=== PATIENT | male | born 1960 | race Caucasian/White ===

== ENCOUNTER 2017-10-16 19:16 | Emergency (ER) | payer OTHER ==
--- OUTSIDE RECORDS SUMMARY | 2017-10-16 19:41 | XMS REPORT ---
:1960 External Reference #:[id number] Author Organization [facility] Address [address] [address] Phone [phone] Care Team Providers Name Role Phone Mayito Galarza DO Care Team Information Manager Business Management Unavailable Payers Type Date Identification Numbers Payment Provider Subscriber Commercial Effective: Policy Number: Lifetime Benefit Gita Patton 2014 [id number] Solution Group Number: [id number] [address] PayID: [place] [address] Medigap Part B Expires: 2014 PayID: [facility] Lifetime Benefit Christian Patton JR Solution [address] [place] [address] Problems Date Description Provider Status Onset: 10/20/2008 Mixed hyperlipidemia Jeovany Sandhu DO Active Onset: 03/21/2008 Psoriasis Jeovany Sandhu DO Active Onset: 03/21/2008 Varicose veins of lower extremity with Jeovany Sandhu DO Active ulcer AND inflammation Onset: 07/19/2007 Allergic rhinitis due to pollen Jeovany Sandhu DO Active Onset: 07/19/2007 Benign essential hypertension Jeovany Sandhu DO Active Onset: 05/23/2016 Family history of malignant neoplasm of Jeovany Sandhu DO Active gastrointestinal tract Onset: 09/08/2014 Gastroesophageal reflux disease Jeovany Sandhu DO Active Social History Type Date Description Comments 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 Marital Status Cigarette Use Never Smoked Cigarettes ETOH Use Rarely consumes alcohol Smoking Patient has never smoked Daily Caffeine Consumes on average 1 cup of coffee per day General Hx Text Allergies, Adverse Reactions, Alerts Date Description Reaction Status Severity Comments 08/18/2014 Mirapex active Medications Medication Date Status Form Strength Qnty SIG Indications Ordering Provider Toprol XL 09/21/19 Active Tablets ER 50mg 90tabs 1 by I10 Geovanni, 17 24HR mouth Mayito, DO every d R00.0 Diovan HCT 08/25/2016 Active Tablets 320-25mg 90tabs 1 by I10 Geovanni, mouth Mayito, DO every day Potassium 11/26/2012 Active Tablets ER 20Meq 90tabs 1 by E87.6 Geovanni, Chloride ER mouth Mayito, DO every day I10 Lansoprazole 12/24/[address] 30mg 90caps 1 by K21.9 Geovanni mouth Mayito, every DO day Aspirin Low Dose 10/20/2008 Active Chewtabs 81mg 1 po qd Phoebe, Jeovany, DO Simvastatin 07/21/2008 Active Tablets 20mg 90tabs 1 by E78.2 Geovanni, mouth Mayito, every DO day Tramadol HCL Active Tablets 50mg 60tabs 1-by M79.606 Geovanni mouth Mayito, twice a DO day as needed for pain Ciprofloxacin 05/22/2017 - Hx Tablets 500mg 42tabs 1 by R97.20 Phoebe, HCL 09/20/2017 mouth Jeovany, twice a DO day Cephalexin 04/17/2017 - Hx Capsules 500mg 30caps 1 by I87.313 Phoebe, 05/22/2017 mouth Jeovany, three DO times a day Toprol XL 09/08/2016 - Hx Tablets ER 25mg 14tabs 1 by I10 Phoebe, 09/20/2016 24HR mouth Jeovany, every DO day R00.0 Diovan HCT 09/08/2014 - Hx Tablets 160-25mg 90tabs 1 by mouth Phoebe, 08/25/2016 every day Jeovany, DO Azithromycin 08/18/2014 - Hx Tablets 250mg 6tabs 2 by mouth 465 Digiovanna, 08/23/2014 on day 1 .9 Bee, and 1 by DELIVERY ASSOCIATE mouth day 2-5 Clobetasol 03/07/2012 - Hx Cream 0.05% 60gm apply to Phoebe, Propionate 09/08/2014 area bid DO Jeovany Diovan HCT 12/21/2009 - Hx Tablets 160-25mg 90Tabs 1 by mouth Phoebe, 09/08/2014 every day DO Jeovany Montelukast 10/26/2009 - Hx Tablets 10mg 30tabs 1 by mouth Phoebe, Sodium 09/08/2014 every d DO Jeovany Acetaminophen - Hx Tablets 500mg 2 PO Q4H Feldman, Extra Strength 09/08/2014 prn MD Chidi Pentoxifylline ER - Hx Tablets ER 400mg 90tabs 1 by mouth Norris, 09/08/2014 daily with seb Bellamy. Horse Clements - Hx Capsules 300mg venostat 1 Unknown 05/11/2015 by mouth twice a day Immunizations CPT Code Status Date Vaccine Reaction Lot # [id number] Given 05/03/2016 Fluvirin Immun[facility] [place]. Vital Signs Date Vital Result Comment 09/20/2017 Weight 204.00 lb Heart Rate 84 /min BP Systolic 144 mmHg BP Diastolic 94 mmHg Respiratory Rate 17 /min Height 69.25 inches 5'9.25" (08/25/16) BMI (Body Mass Index) 29.9 kg/m2 05/22/2017 Weight 207.00 lb Heart Rate 80 /min 80 Reg BP Systolic 128 mmHg BP Diastolic 86 mmHg BP Systolic Recheck 130 mmHg BP Diastolic Recheck 82 mmHg Respiratory Rate 16 /min Height 69.25 inches 5'9.25" (08/25/16) BMI (Body Mass Index) 30.3 kg/m2 04/17/2017 Body Temperature 98.1 F tympanic Weight 204.00 lb Heart Rate 76 /min BP Systolic 134 mmHg BP Diastolic 84 mmHg Respiratory Rate 16 /min Height 69.25 inches 5'9.25" (08/25/16) BMI (Body Mass Index) 29.9 kg/m2 01/16/2017 Weight 200.50 lb Heart Rate 76 /min 76 Reg BP Systolic 110 mmHg BP Diastolic 74 mmHg BP Systolic Recheck 114 mmHg BP Diastolic Recheck 74 mmHg Respiratory Rate 16 /min Height 69.25 inches 5'9.25" (08/25/16) BMI (Body Mass Index) 29.4 kg/m2 10/14/2016 Weight 206.00 lb Heart Rate 78 /min 72 Reg BP Systolic 136 mmHg BP Diastolic 86 mmHg BP Systolic Recheck 130 mmHg BP Diastolic Recheck 80 mmHg Respiratory Rate 18 /min Height 69.25 inches 5'9.25" (08/25/16) BMI (Body Mass Index) 30.2 kg/m2 09/20/2016 Weight 201.00 lb Heart Rate 72 /min 80 Reg BP Systolic 130 mmHg BP Diastolic 80 mmHg BP Systolic Recheck 134 mmHg BP Diastolic Recheck 84 mmHg Respiratory Rate 18 /min Height 69.25 inches 5'9.25" (08/25/16) BMI (Body Mass Index) 29.5 kg/m2 08/25/2016 Weight 231.00 lb Heart Rate 90 /min 100 Reg BP Systolic 140 mmHg BP Diastolic 100 mmHg BP Systolic Recheck 140 mmHg L BP Diastolic Recheck 96 mmHg L BP Systolic Lying Down 140 mmHg R BP Diastolic Lying Down 94 mmHg R Respiratory Rate 24 /min Height 69.25 inches 5'9.25" (08/25/16) BMI (Body Mass Index) 33.9 kg/m2 05/23/2016 Weight 199.06 lb Heart Rate 78 /min 72 Reg BP Systolic 124 mmHg BP Diastolic 70 mmHg BP Systolic Recheck 124 mmHg BP Diastolic Recheck 72 mmHg Respiratory Rate 18 /min Height 70 inches 5'10" BMI (Body Mass Index) 28.6 kg/m2 01/21/2016 Weight 201.00 lb Heart Rate 78 /min 72 Reg BP Systolic 132 mmHg BP Diastolic 90 mmHg BP Systolic Recheck 130 mmHg BP Diastolic Recheck 80 mmHg Respiratory Rate 18 /min Height 69.75 inches 5'9.75" BMI (Body Mass Index) 29.0 kg/m2 09/14/2015 Weight 201.00 lb Heart Rate 78 /min 80 Reg BP Systolic 120 mmHg BP Diastolic 82 mmHg BP Systolic Recheck 120 mmHg BP Diastolic Recheck 80 mmHg Respiratory Rate 18 /min Height 69.75 inches 5'9.75" BMI (Body Mass Index) 29.0 kg/m2 05/11/2015 Weight 196.00 lb Heart Rate 66 /min 68 Reg BP Systolic 132 mmHg BP Diastolic 80 mmHg BP Systolic Recheck 120 mmHg BP Diastolic Recheck 80 mmHg Respiratory Rate 18 /min Height 66.5 inches 5'6.50" BMI (Body Mass Index) 31.2 kg/m2 02/16/2015 Weight 197.00 lb Heart Rate 60 /min BP Systolic 126 mmHg BP Diastolic 88 mmHg Respiratory Rate 18 /min Height 66.5 inches 5'6.50" BMI (Body Mass Index) 31.3 kg/m2 01/08/2015 Weight 199.00 lb Heart Rate 78 /min 72 Reg BP Systolic 130 mmHg BP Diastolic 80 mmHg BP Systolic Recheck 130 mmHg BP Diastolic Recheck 76 mmHg Respiratory Rate 18 /min 09/08/2014 Weight 194.00 lb Heart Rate 66 /min 72 Reg BP Systolic 110 mmHg BP Diastolic 70 mmHg BP Systolic Recheck 120 mmHg BP Diastolic Recheck 70 mmHg Respiratory Rate 24 /min 08/18/2014 Body Temperature 98.8 F Weight 179.25 lb Heart Rate 88 /min BP Systolic 152 mmHg BP Diastolic 90 mmHg Respiratory Rate 18 /min Height 66.45 inches 5'6.45" 2/15 O2 % BldC Oximetry 96 % Ra BMI (Body Mass Index) 28.5 kg/m2 05/05/2014 BP Systolic 110 mmHg BP Diastolic 78 mmHg 05/05/2014 Weight 178.00 lb Heart Rate 78 /min 72 Reg BP Systolic 110 mmHg BP Diastolic 70 mmHg Respiratory Rate 18 /min Height 66.5 inches 5'6.50" 12/27/2013 BP Systolic 118 mmHg BP Diastolic 72 mmHg 12/27/2013 Weight 178.00 lb Heart Rate 78 /min 72 Reg BP Systolic 110 mmHg BP Diastolic 70 mmHg Respiratory Rate 18 /min Height 66.5 inches 5'6.50" 08/29/2013 BP Systolic 120 mmHg BP Diastolic 70 mmHg 08/29/2013 Weight 181.00 lb Heart Rate 78 /min 80 Reg BP Systolic 120 mmHg BP Diastolic 70 mmHg Respiratory Rate 18 /min O2 % BldC Oximetry 97 % Ra Results Test Date Test Result H/L Range Note Laboratory test finding 07/03/2017 Glucose 101 mg/dL 70-105 1 Hemoglobin A1c 07/03/2017 Hemoglobin A1c 5.4 % 4.1-5.9 1 Estimated Average Glucose Calc 108 mg/dL 71-140 1 PSA Total And Free -RL 07/03/2017 PSA Total 5.1 ng/mL High (0.0-4.0) 1 PSA Free 0.4 ng/mL 1 PSA % Free 8 % 1, 2 Hemoglobin A1c 05/22/2017 Hemoglobin A1c 5.4 % 4.1-5.9 3 Estimated Average Glucose Calc 108 71-140 3 CBC With Auto Diff 05/15/2017 WBC 6.1 K/uL 4.1-11.0 4 RBC 4.67 M/uL 4.60-6.10 4 Hemoglobin 15.6 gm/dL 13.5-18.0 4 Hematocrit 43.3 % 41.0-53.0 4 MCV 92.8 fL 80.0-97.0 4 MCH 33.4 pg High 27.0-32.0 4 MCHC 36.0 g/dL 32.0-36.0 4 RDW 13.1 % 11.5-14.5 4 PLT Count 273 K/ul 140-400 4 MPV 7.8 FL 7.1-10.7 4 Neutrophil 59.8 % 35.0-75.0 4 Lymphocyte 27.4 % 16.0-52.0 4 Monocyte 8.8 % 2.0-10.0 4 Eosinophil 2.8 % 0.0-5.0 4 Basophil 1.2 % 0.0-4.0 4 Abs Neutrophils 3.7 K/uL 2.1-8.0 4 Abs Lymphocytes 1.7 K/uL 0.8-5.5 4 Abs Monocytes 0.5 K/uL 0.1-1.0 4 Abs Eosinophils 0.2 K/uL 0.0-0.5 4 Abs Basophils 0.1 K/uL 0.0-0.3 4 Basic (BMP) 05/15/2017 Sodium 135 mmol/L 135-146 4, 5 Potassium 3.7 mmol/L 3.5-5.2 4 Chloride# 97 mmol/L 97-110 4, 6 Carbon Dioxide 29 mmol/L 24-34 4 Glucose 166 mg/dL High 70-105 4 Creatinine 0.8 mg/dL 0.5-1.4 4 Calcium 9.6 mg/dL 8.5-10.2 4 Non Shabana Egfr >60 >60 4, 7 Shabana Egfr >60 >60 4, 8 Anion Gap 9 mmol/L 7-16 4, 9 BUN 10 mg/dL 6-26 4 Lipid Treatment 05/15/2017 Cholesterol 131 mg/dL 50-199 4 Triglycerides 333 mg/dL High 30-150 4 HDL 29 mg/dL Low 40-71 4, 10 Chol/ HDL Ratio 4.5 ratio 4.0-6.7 4 VLDL 67 mg/dL High 2-29 4 LDL (Calc) 35 mg/dL 20-99 4, 11 Alt 19 U/L 3-42 4 Ast 18 U/L 8-42 4 Laboratory test finding 05/15/2017 PSA 4.140 ng/mL High 0.000-4.000 4, 12 CBC With Auto Diff 09/14/2016 WBC 8.5 K/uL 4.1-11.0 4 RBC 5.04 M/uL 4.60-6.10 4 Hemoglobin 16.6 gm/dL 13.5-18.0 4 Hematocrit 47.5 % 41.0-53.0 4 MCV 94.3 fL 80.0-97.0 4 MCH 32.9 pg High 27.0-32.0 4 MCHC 34.9 g/dL 32.0-36.0 4 RDW 13.3 % 11.5-14.5 4 PLT Count 289 K/ul 140-400 4 Neutrophil 62.2 % 35.0-75.0 4 Lymphocyte 24.4 % 16.0-52.0 4 Monocyte 7.9 % 2.0-10.0 4 Eosinophil 4.0 % 0.0-5.0 4 Basophil 1.5 % 0.0-4.0 4 Abs Neutrophils 5.3 K/uL 2.1-8.0 4 Abs Lymphocytes 2.1 K/uL 0.8-5.5 4 Abs Monocytes 0.7 K/uL 0.1-1.0 4 Abs Eosinophils 0.3 K/uL 0.0-0.5 4 Abs Basophils 0.1 K/uL 0.0-0.3 4 Basic (BMP) 09/14/2016 Sodium 139 mmol/L 134-142 4 Potassium 3.4 mmol/L Low 3.5-5.2 4 Chloride 99 mmol/L 97-109 4 Carbon Dioxide 34 mmol/L 24-34 4 Glucose 123 mg/dL High 70-105 4 BUN 15 mg/dL 6-26 4 Creatinine 0.8 mg/dL 0.5-1.4 4 Calcium 10.2 mg/dL 8.5-10.2 4 Anion Gap 9 mmol/L 6-14 4 Non Shabana Egfr >60 >60 4, 13 Shabana Egfr >60 >60 4, 14 Lipid Treatment 09/14/2016 Cholesterol 143 mg/dL 50-199 4 Triglycerides 205 mg/dL High 30-150 4 HDL 38 mg/dL Low 40-71 4, 15 Chol/ HDL Ratio 3.7 ratio Low 4.0-6.7 4 VLDL 41 mg/dL High 2-29 4 LDL (Calc) 64 mg/dL 20-99 4, 16 Alt 27 U/L 3-42 4 Ast 19 U/L 8-42 4 Lipid 08/25/2016 Cholesterol 141 mg/dL 50-199 17 Triglycerides 152 mg/dL High 30-150 17 HDL 39 mg/dL Low 40-71 17, 18 Chol/ HDL Ratio 3.6 ratio Low 4.0-6.7 17 VLDL 30 mg/dL High 2-29 17 LDL (Calc) 72 mg/dL 20-99 17, 19 Metanephrines Plasma 08/25/2016 Normetanephrine 0.46 nmol/L 20 Metanephrine 0.25 nmol/L 21 Interpretation See Note 22 Ua RFX Micro & Culture II 07/30/2016 Urine Color YELLOW Yellow 23 Urine Clarity CLEAR Clear 23 Urine Glucose - Dipstick NEGATIVE mg/dL Negative 23 Urine Bilirubin - Dipstick NEGATIVE Negative 23 Urine Ketone TRACE mg/dL High Negative 23 Urine Specific [place] 1.020 1.010-1.030 23 Urine Blood NEGATIVE Negative 23 Urine PH 6.5 6.5-7.5 23 Urine Protein - Dipstick NEGATIVE mg/dL Negative 23 Urine Urobilinogen - Dipstick 0.2 E.U./dL 0.2-1.0 23 Urine Nitrite - Dipstick NEGATIVE Negative 23 Urine Leuk Esterase NEGATIVE Negative 23 Source: URINE, CLEAN CAT <SEE 23, 24 NOTE> Laboratory test finding 07/30/2016 Glucose,Bedside 106 mg/dL 70-110 23 CBS W/Automated Diff 07/30/2016 White Blood Count 5.9 K/uL 3.4-10.5 23 Red Blood Count 5.02 M/uL 4.20-5.80 23 Hemoglobin 16.4 gm/dL 12.8-17.0 23 Hematocrit 45.6 % 38.0-48.0 23 Mean Cell Volume 90.8 fl 80.0-96.0 23 Mean Corpuscular HGB 32.7 pg 27.0-33.0 23 Mean Corpuscular HGB Conc 36.0 g/dL 31.7-36.0 23 Platelet Count 227 K/uL 150-400 23 Red Cell Distri Width SD 42.6 fl 36-51 23 Red Cell Distri Width %CV 13.1 % 11.6-15.8 23 Mean Platelet Volume 9.1 fL 6.6-10.6 23 Neut% 61.9 % 33.0-73.0 23 Lymph % 22.5 % 20.0-42.0 23 Lajas % 12.4 % High 0.0-10.0 23 Eo% 2.7 % 0.0-5.0 23 Bas% 0.5 % 0.1-1.0 23 Neut# 3.65 K/uL 1.8-7.0 23 Lymph # 1.33 K/uL 1.0-4.0 23 Lajas # 0.73 K/uL 0.0-0.8 23 Eos # 0.16 K/uL 0.0-0.5 23 Baso # 0.03 K/uL Low 0.1-0.2 23 Protime 07/30/2016 Protime 13.9 seconds 12.0-14.4 23 Inr 1.1 0.9-1.1 23, 25 Laboratory test finding 07/30/2016 Act Partial 27.4 seconds 23.4-35.0 23 , 26 Thrombo Time Comprehensive Metabolic 07/30/2016 Glucose 118 mg/dL High 74-106 23 Panel BUN 13 mg/dL 7-18 23 Creatinine 0.8 mg/dL 0.6-1.3 23 Glom Filtration Rate, Estimate >60 mL/min >60 23 If >60 mL/min >60 23, 27 BUN/Creat 16.2 ratio 23 Sodium 137 mmol/L 136-145 23 Potassium 3.2 mmol/L Low 3.5-5.1 23 Chloride 102 mmol/L 98-107 23 Carbon Dioxide 27 mmol/L 21-32 23 Anion Gap 8 mEq/L 8-16 23 Calcium 9.2 mg/dL 8.5-10.1 23 Total Protein 7.9 g/dL 6.4-8.2 23 Albumin 4.3 g/dL 3.4-5.0 23 Globulin 3.6 g/dL 1.9-4.3 23 Alb/Glob 1.2 ratio 23 Bilirubin,Total 0.6 mg/dL 0.2-1.0 23 Sgot/Ast 19 U/L 15-37 23 SGPT/Alt 31 U/L 12-78 23 Alkaline Phosphatase 63 U/L 45-117 23 Laboratory test finding 07/30/2016 CK 69 U/L 39-308 23 Troponin-I < 0.015 ng/mL 23, 28 Laboratory test finding 07/30/2016 Ethyl Alcohol < 3.0 mg/dL 23 Lipid Treatment 01/13/2016 Cholesterol 141 mg/dL 50-199 29 Triglycerides 210 mg/dL High 30-150 29 HDL 33 mg/dL Low 40-71 29, 30 Chol/ HDL Ratio 4.3 ratio 4.0-6.7 29 VLDL 42 mg/dL High 2-29 29 LDL (Calc) 66 mg/dL 20-99 29, 31 Alt 20 U/L 3-42 29 Ast 17 U/L 8-42 29 Laboratory test finding 01/13/2016 Magnesium 2.0 mg/dL 1.5-2.7 29 PSA 2.930 ng/mL 0.000-4.000 29, 32 Basic (BMP) 01/13/2016 Sodium 135 mmol/L 134-142 29 Potassium 3.7 mmol/L 3.5-5.2 29 Chloride 100 mmol/L 97-109 29 Carbon Dioxide 27 mmol/L 24-34 29 Glucose 94 mg/dL 70-105 29 BUN 15 mg/dL 6-26 29 Creatinine 0.9 mg/dL 0.5-1.4 29 Calcium 10.1 mg/dL 8.5-10.2 29 Anion Gap 12 mmol/L 6-14 29 Non Shabana Egfr >60 >60 29, 33 Shabana Egfr >60 >60 29, 34 CBC With Auto Diff 01/13/2016 WBC 6.0 K/uL 4.1-11.0 29 RBC 4.84 M/uL 4.60-6.10 29 Hemoglobin 16.0 gm/dL 13.5-18.0 29 Hematocrit 44.9 % 41.0-53.0 29 MCV 92.8 fL 80.0-97.0 29 MCH 33.0 pg High 27.0-32.0 29 MCHC 35.5 g/dL 32.0-36.0 29 RDW 13.3 % 11.5-14.5 29 PLT Count 241 K/ul 140-400 29 Neutrophil 60.4 % 35.0-75.0 29 Lymphocyte 25.4 % 16.0-52.0 29 Monocyte 10.0 % 2.0-10.0 29 Eosinophil 2.9 % 0.0-5.0 29 Basophil 1.3 % 0.0-4.0 29 Abs Neutrophils 3.6 K/uL 2.1-8.0 29 Abs Lymphocytes 1.5 K/uL 0.8-5.5 29 Abs Monocytes 0.6 K/uL 0.1-1.0 29 Abs Eosinophils 0.2 K/uL 0.0-0.5 29 Abs Basophils 0.1 K/uL 0.0-0.3 29 CBC With Auto Diff 05/04/2015 WBC 6.2 K/uL 4.1-11.0 29 RBC 4.77 M/uL 4.60-6.10 29 Hemoglobin 15.8 gm/dL 13.5-18.0 29 Hematocrit 44.5 % 41.0-53.0 29 MCV 93.3 fL 80.0-97.0 29 MCH 33.1 pg High 27.0-32.0 29 MCHC 35.4 g/dL 32.0-36.0 29 RDW 12.7 % 11.5-14.5 29 PLT Count 231 K/ul 140-400 29 Neutrophil 55.5 % 35.0-75.0 29 Lymphocyte 30.5 % 16.0-52.0 29 Monocyte 9.5 % 2.0-10.0 29 Eosinophil 3.6 % 0.0-5.0 29 Basophil 0.9 % 0.0-4.0 29 Abs Neutrophils 3.4 K/uL 2.1-8.0 29 Abs Lymphocytes 1.9 K/uL 0.8-5.5 29 Abmon 0.6 K/uL 0.1-1.0 29 Abs Eosinophils 0.2 K/uL 0.0-0.5 29 Abs Basophils 0.1 K/uL 0.0-0.3 29 Basic (BMP) 05/04/2015 Sodium 130 mmol/L Low 134-142 29 Potassium 3.8 mmol/L 3.5-5.2 29 Chloride 93 Electrolytes <SEE NOTE> Low 97-109 29, 35 mmol/L Carbon Dioxide 29 mmol/L 24-34 29 Glucose 91 mg/dL 70-105 29 BUN 11 mg/dL 6-26 29 Creatinine 0.7 mg/dL 0.5-1.4 29 Calcium 10.3 mg/dL High 8.5-10.2 29 Anion Gap 12 mmol/L 6- 29 Non Shabana Egfr >60 >60 29, 36 Shabana Egfr >60 >60 29, 37 Lipid Treatment 05/04/2015 Cholesterol 134 mg/dL 50-199 29 Triglycerides 118 mg/dL 30-150 29 HDL 37 mg/dL Low 40-71 29, 38 Chol/ HDL Ratio 3.6 ratio Low 4.0-6.7 29 VLDL 24 mg/dL 2- 29 LDL (Calc) 73 mg/dL 20-99 29, 39 Alt 18 U/L 3- 29 Ast 18 U/L 8- 29 Basic (BMP) 09/01/2014 Sodium 134 mmol/L 134-142 Potassium 3.8 mmol/L 3.5-5.2 Chloride 97 mmol/L 97-109 Carbon Dioxide 31 mmol/L 24-34 Glucose 90 mg/dL 70-105 BUN 13 mg/dL 01-09 Creatinine 0.7 mg/dL 0.5-1.4 Calcium 10.3 mg/dL High 8.5-10.2 Anion Gap 10 mmol/L 6 Non Shabana Egfr >60 >60 40 Shabana Egfr >60 >60 41 CBC With Auto Diff 09/01/2014 WBC 5.8 K/uL 4.1-11.0 RBC 4.73 M/uL 4.60-6.10 Hemoglobin 15.7 gm/dL 13.5-18.0 Hematocrit 44.5 % 41.0-53.0 MCV 94.0 fL 80.0-97.0 MCH 33.1 pg High 27.0-32.0 MCHC 35.2 g/dL 32.0-36.0 RDW 13.2 % 11.5-14.5 PLT Count 265 K/ul 140-400 Neutrophil 58.4 % 35.0-75.0 Lymphocyte 26.4 % 16.0-52.0 Monocyte 10.0 % 2.0-10.0 Eosinophil 4.3 % 0.0-5.0 Basophil 0.9 % 0.0-4.0 Abs Neutrophils 3.4 K/uL 2.1-8.0 Abs Lymphocytes 1.5 K/uL 0.8-5.5 Abmon 0.6 K/uL 0.1-1.0 Abs Eosinophils 0.2 K/uL 0.0-0.5 Abs Basophils 0.1 K/uL 0.0-0.3 Lipid Treatment 09/01/2014 Cholesterol 126 mg/dL 50-199 Triglycerides 192 mg/dL High 30-150 HDL 36 mg/dL Low 40-71 42 Chol/ HDL Ratio 3.5 ratio Low 4.0-6.7 VLDL 38 mg/dL High 2-29 LDL (Calc) 52 mg/dL 20-99 43 Alt 16 U/L 3-42 Ast 17 U/L 8-42 Laboratory test finding 09/01/2014 PSA 2.150 ng/mL 0.000-4.000 44 Laboratory test finding 12/20/2013 % Baso. 1.2 % 0.0-2.0 % Eos. 3.0 % 0.0-4.0 % Lymph 23 % 20-44 % Lajas 7.8 % 2.0-10.0 % Jonah 65 % 50-70 Absolute Baso. 0.1 K/ul 0.0-0.3 Absolute Eos. 0.2 K/ul 0.0-0.5 Absolute Lymph. 1.9 K/ul 0.8-4.8 Absolute Lajas. 0.6 K/ul 0.1-1.0 Absolute Jonah. 5.37 K/ul 2.05-7.63 Alt 23.0 U/L 21.0-72.0 Ast 23.0 U/L 17.0-59.0 BUN 12.0 mg/dL 9.0-21.0 BUN/Creat Ratio 13.3 ratio 12.0-20.0 Calcium 10.3 mg/dL 8.7-10.5 Chloride 99.0 mmol/L 98.0-107.0 Co2 28.0 mmol/L 22.0-30.0 Creatinine-Serum 0.9 mg/dL 0.8-1.5 Glucose 95.0 mg/dL 75.0-110.0 HCT 43.9 % 37.0-51.0 HGB 16.6 Gm/dl High 12.0-16.0 MCH 34.3 pg High 26.0-32.0 MCHC 37.8 g/dL 31.0-36.0 45 MCV 90.7 Fl 80.0-97.0 MPV 5.4 fL Low 6.0-10.0 PLT 276 K/ul 140-440 Potasium 3.6 mmol/L 3.6-5.0 RBC 4.8 M/ul 4.2-6.3 RDW 11.3 % Low 11.5-14.5 Sodium 138.0 mmil/L 137.0-145.0 Vitamin D 47.1 ng/mL 30.0-100.0 WBC 8.3 K/ul 4.1-10.9 eGFR 93.1 Lipid Panel 12/20/2013 Chol/HDL Ratio 3.2 ratio Cholesterol 139.0 mg/dL 50.0-199.0 HDL 43.0 mg/dL 40.0-67.0 LDL, Calculated 77.8 mg/dL 20.0-129.0 Triglycerides 91.0 mg/dL 30.0-150.0 vLDL 18.2 ng/dL 1 SCHEDULE IN 6 WEEKS 2 % FREE PSA PROBABILITY OF CANCER 0 - 10% 56% 10 - 15% 28% 15 - 20% 20% 20 - 25% 16% GREATER THAN 25% 8% THE FREE PSA PERCENTAGE IS AN AID IN DISTINGUISHING PROSTATE CANCER FROM BENIGN PROSTATIC CONDITIONS IN MEN AGE 50 AND OLDER WITH A TOTAL PSA BETWEEN 3 AND 10 NG/ML AND NEGATIVE DIGITAL RECTAL EXAMINATION FINDINGS. PROSTATIC BIOPSY IS REQUIRED FOR THE DIAGNOSIS OF CANCER. (See: CHAGO 1998; 279: 2300-4903) METHOD USED TO ASSAY BOTH FREE PSA AND TOTAL PSA IS LESLEY ACCESS/DXI (CHEMILUMINESCENCE IMMUNOASSAY, HYBRITECH CALIBRATION). RESULTS SHOULD NOT BE INTERPRETED ABSOLUTE EVIDENCE FOR THE PRESENCE OR ABSENCE OF MALIGNANT DISEASE. VALUES OBTAINED WITH DIFFERENT ASSAY METHODS OR KITS CANNOT BE USED INTERCHANGEABLY. Unless otherwise specified, testing performed by [facility] [address] [place] [id number] 3 TODAY 4 SCHEDULE 1 WEEK PRIOR TO NEXT VISIT 5 Updated reference range on new analyzer 6 Updated reference range on new analyzer 7 Concerning GFR Guidelines: Normal function or mild renal disease, if clinically at risk: >/=60 mL/min Moderately decreased: 30-59 Severely decreased: 15-29 Renal failure: <15 Glomerular Filtration Rate (GFR) is estimated based on the MDRD equation, which assumes a steady state for creatinine as recommended by the National Kidney Disease Education Program in conjunction with the National Institutes of Health and the National Kidney Foundation. Clinical conditions in which it may be necessary to measure GFR by using clearance methods include extremes of age and body size, severe malnutrition or obesity, diseases of skeletal muscle, paraplegia or quadriplegia, vegetarian diet, rapidly changing kidney function, and calculation of the dose of potentially toxic drugs that are excreted by the kidneys. 8 Concerning GFR Guidelines for Americans: Normal function or mild renal disease, if clinically at risk: >/=60 mL/min Moderately decreased: 30-59 Severely decreased: 15-29 Renal failure: <15 9 Updated reference range on new analyzer 10 Per NCEP ATP III Guidelines: Results lower than 40 mg/dL are suggestive of increased risk for coronary artery disease. Results > or=to 60 mg/dL are considered a negative risk factor. 11 Per NCEP ATP III Guidelines: Normal Population <130 Patients with medical conditions: CHD/DM Optimal: <100 Borderline high: 130-159 High: 160-189 Very high: >189 12 Beginning 09/11/06 PSA values assayed at [facility] uses chemiluminescence methodology manufactured by [employer] for use on the DXI analyzer. Values obtained with different assay methods or kits can not be used interchangeably. Serum PSA measurement is not an absolute test for malignancy. The PSA value should be used in conjunction with information available from clinical evaluation and other diagnostic procedures. 13 Concerning GFR Guidelines: Normal function or mild renal disease, if clinically at risk: >/=60 mL/min Moderately decreased: 30-59 Severely decreased: 15-29 Renal failure: <15 Glomerular Filtration Rate (GFR) is estimated based on the MDRD equation, which assumes a steady state for creatinine as recommended by the National Kidney Disease Education Program in conjunction with the National Institutes of Health and the National Kidney Foundation. Clinical conditions in which it may be necessary to measure GFR by using clearance methods include extremes of age and body size, severe malnutrition or obesity, diseases of skeletal muscle, paraplegia or quadriplegia, vegetarian diet, rapidly changing kidney function, and calculation of the dose of potentially toxic drugs that are excreted by the kidneys. 14 Concerning GFR Guidelines for Americans: Normal function or mild renal disease, if clinically at risk: >/=60 mL/min Moderately decreased: 30-59 Severely decreased: 15-29 Renal failure: <15 15 Per NCEP ATP III Guidelines: Results lower than 40 mg/dL are suggestive of increased risk for coronary artery disease. Results > or=to 60 mg/dL are considered a negative risk factor. 16 Per NCEP ATP III Guidelines: Normal Population <130 Patients with medical conditions: CHD/DM Optimal: <100 Borderline high: 130-159 High: 160-189 Very high: >189 17 TODAY 18 Per NCEP ATP III Guidelines: Results lower than 40 mg/dL are suggestive of increased risk for coronary artery disease. Results > or=to 60 mg/dL are considered a negative risk factor. 19 Per NCEP ATP III Guidelines: Normal Population <130 Patients with medical conditions: CHD/DM Optimal: <100 Borderline high: 130-159 High: 160-189 Very high: >189 20 Reference range: 0.00 to 0.89 21 Reference range: 0.00 to 0.49 22 INTERPRETIVE INFORMATION: Metanephrines, Plasma (Free) This test is useful in the detection of pheochromocytoma, a rare neuroendocrine tumor. The majority of patients with pheochromocytoma have a plasma normetanephrine concentration in excess of 2.2 nmol/L and/or a metanephrine concentration in excess of 1.1 nmol/L. Increased concentrations of these analytes serve as confirmation for diagnosis. Patients with essential hypertension and plasma concentrations of normetanephrine below 0.9 nmol/L and a metanephrine concentration below 0.5 nmol/L, can be excluded from further testing. If clinical suspicion remains, repeat testing or testing for metanephrines in a 24-hr. urine specimen should be considered. See Compliance Statement B: [facility] Performed by [facility], [address] [place] [id number] [email or web address] Terry Phillips MD, Lab. Director 23 MEMORY LOSS, CAN'T REMEMBER AGE, CONFUSED 24 URINE, CLEAN CATCH 25 THERAPEUTIC INR RANGE: 2.0 - 3.0 DVT, Pulmonary embolus, prophylaxis against venous thrombosis or systemic embolization in high risk patients. 2.5 - 3.5 Mechanical heart valves 26 Is patient on anticoagulants? Coumadin 27 Note: Persistent reduction for 3 months or more in an eGFR <60 mL/min/1.73 m2 defines CKD. Patients with eGFR values >/=60 mL/min/1.73 m2 may also have CKD if evidence of persistent proteinuria is present. The original MDRD equation for estimated GFR is not valid for patients less than 18 years of age. Additional information may be found at www.kdoqi.org. 28 0.0 - 0.045 ng/mL: Normal 0.046 - 0.5 ng/mL: Suggestive 0.6 - 1.5 ng/mL: Consistent 29 SCHEDULE 1 WEEK PRIOR TO NEXT VISIT 30 Per NCEP ATP III Guidelines: Results lower than 40 mg/dL are suggestive of increased risk for coronary artery disease. Results > or=to 60 mg/dL are considered a negative risk factor. 31 Per NCEP ATP III Guidelines: Normal Population <130 Patients with medical conditions: CHD/DM Optimal: <100 Borderline high: 130-159 High: 160-189 Very high: >189 32 Beginning 09/11/06 PSA values assayed at [facility] [employer] [facility] uses chemiluminescence methodology manufactured by [employer] for use on the DXI analyzer. Values obtained with different assay methods or kits can not be used interchangeably. Serum PSA measurement is not an absolute test for malignancy. The PSA value should be used in conjunction with information available from clinical evaluation and other diagnostic procedures. 33 Concerning GFR Guidelines: Normal function or mild renal disease, if clinically at risk: >/=60 mL/min Moderately decreased: 30-59 Severely decreased: 15-29 Renal failure: <15 Glomerular Filtration Rate (GFR) is estimated based on the MDRD equation, which assumes a steady state for creatinine as recommended by the National Kidney Disease Education Program in conjunction with the National Institutes of Health and the National Kidney Foundation. Clinical conditions in which it may be necessary to measure GFR by using clearance methods include extremes of age and body size, severe malnutrition or obesity, diseases of skeletal muscle, paraplegia or quadriplegia, vegetarian diet, rapidly changing kidney function, and calculation of the dose of potentially toxic drugs that are excreted by the kidneys. 34 Concerning GFR Guidelines for Americans: Normal function or mild renal disease, if clinically at risk: >/=60 mL/min Moderately decreased: 30-59 Severely decreased: 15-29 Renal failure: <15 35 93 Electrolytes confirmed by repeat. 36 Concerning GFR Guidelines: Normal function or mild renal disease, if clinically at risk: >/=60 mL/min Moderately decreased: 30-59 Severely decreased: 15-29 Renal failure: <15 Glomerular Filtration Rate (GFR) is estimated based on the MDRD equation, which assumes a steady state for creatinine as recommended by the National Kidney Disease Education Program in conjunction with the National Institutes of Health and the National Kidney Foundation. Clinical conditions in which it may be necessary to measure GFR by using clearance methods include extremes of age and body size, severe malnutrition or obesity, diseases of skeletal muscle, paraplegia or quadriplegia, vegetarian diet, rapidly changing kidney function, and calculation of the dose of potentially toxic drugs that are excreted by the kidneys. 37 Concerning GFR Guidelines for Americans: Normal function or mild renal disease, if clinically at risk: >/=60 mL/min Moderately decreased: 30-59 Severely decreased: 15-29 Renal failure: <15 38 Per NCEP ATP III Guidelines: Results lower than 40 mg/dL are suggestive of increased risk for coronary artery disease. Results > or=to 60 mg/dL are considered a negative risk factor. 39 Per NCEP ATP III Guidelines: Normal Population <130 Patients with medical conditions: CHD/DM Optimal: <100 Borderline high: 130-159 High: 160-189 Very high: >189 40 Concerning GFR Guidelines: Normal function or mild renal disease, if clinically at risk: >/=60 mL/min Moderately decreased: 30-59 Severely decreased: 15-29 Renal failure: <15 Glomerular Filtration Rate (GFR) is estimated based on the MDRD equation, which assumes a steady state for creatinine as recommended by the National Kidney Disease Education Program in conjunction with the National Institutes of Health and the National Kidney Foundation. Clinical conditions in which it may be necessary to measure GFR by using clearance methods include extremes of age and body size, severe malnutrition or obesity, diseases of skeletal muscle, paraplegia or quadriplegia, vegetarian diet, rapidly changing kidney function, and calculation of the dose of potentially toxic drugs that are excreted by the kidneys. 41 Concerning GFR Guidelines for Americans: Normal function or mild renal disease, if clinically at risk: >/=60 mL/min Moderately decreased: 30-59 Severely decreased: 15-29 Renal failure: <15 42 Per NCEP ATP III Guidelines: Results lower than 40 mg/dL are suggestive of increased risk for coronary artery disease. Results > or=to 60 mg/dL are considered a negative risk factor. 43 Per NCEP ATP III Guidelines: Normal Population <130 Patients with medical conditions: CHD/DM Optimal: <100 Borderline high: 130-159 High: 160-189 Very high: >189 44 Beginning 09/11/06 PSA values assayed at [facility] uses an EIA methodology manufactured by [employer] for use on the DXI analyzer. Values obtained with different assay methods or kits can not be used interchangeably. Serum PSA measurement is not an absolute test for malignancy. The PSA value should be used in conjunction with information available from clinical evaluation and other diagnostic procedures. 45 ERLIN=CONFIRMED Procedures Date CPT Code Description Status Comment 07/01/2016 Colonoscopy Completed Document: 03/24/11 - Colonoscopy Document: 07/01/16 - Colonoscopy Op Report NEXT 202008/18/2014 17510 Measure Blood Oxygen Level Completed Single Determination 03/24/2011 22427 Colonoscopy Flexible Diagnostic Completed 01/03/2008 66620 Biopsy Skin Lesion Single Completed 03/14/2006 90446 Electrocardiogram Complete Completed Encounters Type Date Location Provider CPT E/M Dx Office Visit 05/22/2017 3:00[place] [address] I10 E78.2 K21.9 J30.1 G47.33 R00.0 Z80.0 Z12.5 R97.20 R73.09 Office Visit 04/17/2017 4:15p [place] [address] I87.313 Office Visit 01/16/2017 3:00p [place] [address] I10 R00.0 G47.33 E78.2 K21.9 J30.1 I83.202 Z80.0 M79.606 Office Visit 10/14/2016 11:15[place] [address] I10 R00.0 G47.33 Office Visit 09/20/2016 3:00p [place] [address] I10 R00.0 E78.2 G45.4 K21.9 J30.1 I83.202 Z80.0 Office Visit 08/25/2016 8:15[place] [address] G45.4 I10 E78.2 R00.0 Office Visit 05/23/2016 2:45p [facility] [place] [address] I10 E78.2 K21.9 J30.1 I83.202 Z80.0 Office Visit 01/21/2016 3:00p [facility] [place] [address] I10 E78.2 K21.9 J30.1 M79.606 I83.202 Z80.0 Office Visit 09/14/2015 3:00p [facility] [place] [address] I10 E78.2 K21.9 I83.202 J30.1 M79.606 Office Visit 05/11/2015 2:45p [facility] [place] [address] I10 E78.2 M79.606 K21.9 I83.202 J30.1 Office Visit 02/16/2015 11:35a [facility] Jeovany Sandhu [address] 729.5 Office Visit 01/08/2015 2:45p [facility] Jeovany Sandhu [address] 401.1 272.2 530.81 696.1 454.2 477.0 Office Visit 09/08/2014 3:15p [facility] [place] [address] 401.1 272.2 530.81 696.1 454.2 477.0 V76.44 Office Visit 08/18/2014 10:45a [facility] [place] [place] [address] 465.9 Plan of Care Future Appointment(s):01/15/2018 8:35 am - Schedule, Laboratory at [facility]2017 1:45 pm - Mayito Galarza, DO at [facility]09/20/2017 - Mayito Galarza [id number] Essential (primary) hypertensionNew Labs:CBC With Auto DiffBasic (BMP)TSHLipid TreatmentFollow up:Get fasting lab work done in 4 months, then see me a few days later.E78.2 Mixed frcncstrciaxjrO38.9 Gastro-esophageal reflux disease without esophagitisNew Labs:BtpakwnzaS73.1 Allergic rhinitis due to ctqjeiZ96.33 Obstructive sleep apnea (adult) (pediatric)R00.0 Tachycardia, ggfdstoxvwdV49.0 Family history of malignant neoplasm of digestive myeyshW99 Malignant neoplasm of vlzaybewI08.313 Chronic venous hypertension w ulcer of bilateral low ydxloI10.4 Transient global zztgeueZ02.0 Lymphedema, not elsewhere classified
[2017-10-16 19:48] VITALS: BP 147/74
--- NOTE | 2017-10-16 20:00 | UC ---
UC General HPI - HPI Summary HPI Summary: pt is c/o a 3 days hx or worsening sore throat. tonight he noticed a rash on his neck. - History of Current Complaint Hx Obtained From: Patient Onset/Duration: Gradual Onset Timing: Constant Pain Intensity: 5 Aggravating: swallowing Alleviating: nothing <Cynthia Alvarez - Last Filed: 10/16/17 19:55> <Yvrose Echevarria - Last Filed: 10/17/17 09:06> - History of Current Complaint Stated Complaint: SORE THROAT,RESPIRATORY, RASH Time Seen by Provider: 10/16/17 19:46 - Allergy/Home Medications Allergies/Adverse Reactions: Allergies Allergy/AdvReac Type Severity Reaction Status Date / Time pentoxifylline [From Trental] AdvReac Hallucinati Verified 10/16/17 19:48 ons Home Medications: Home Medications Metoprolol Succinate XL TAB* [Toprol XL TAB*] 50 mg PO DAILY 10/16/17 [History Confirmed 10/16/17] Probiotics 1 tab DAILY 10/16/17 [History Confirmed 10/16/17] traMADol TAB* [Ultram*] 50 mg PO BID 10/16/17 [History Confirmed 10/16/17] PMH/Surg Hx/FS Hx/Imm Hx Endocrine History: Dyslipidemia Cardiovascular History: Hypertension - Surgical History Surgical History: Yes Surgery Procedure, Year, and Place: 2007 VARICOSE VEIN LEFT LEG. 05/2014, LEFT VERICOSE VEINS, [facility]. VEIN RESECTION - Social History Lives: With Family Alcohol Use: None Substance Use Type: None Smoking Status (MU): Never Smoked Tobacco Have You Smoked in the Last Year: No - Immunization History Vaccination Up to Date: Yes <Cynthia Alvarez - Last Filed: 10/16/17 19:55> Review of Systems Constitutional: Negative Skin: Rash - front of neck Eyes: Negative ENT: Sore Throat Respiratory: Negative Cardiovascular: Negative Gastrointestinal: Negative Genitourinary: Negative Motor: Negative Neurovascular: Negative Musculoskeletal: Negative Neurological: Negative Psychological: Negative Is Patient Immunocompromised?: No All Other Systems Reviewed And Are Negative: Yes <Cynthia Alvarez - Last Filed: 10/16/17 19:55> Physical Exam Triage Information Reviewed: Yes Appearance: Well-Appearing Vital Signs: Initial Vital Signs Temp 97.9 F 10/16/17 19:41 Pulse 88 10/16/17 19:41 Resp 18 10/16/17 19:41 BP 147/74 10/16/17 19:41 Pulse Ox 95 10/16/17 19:41 Vital Signs Reviewed: Yes Eyes: Positive: Conjunctiva Clear ENT: Positive: Pharyngeal erythema, TMs normal, Uvula midline - with mild erythema.. Negative: Nasal congestion, Nasal drainage, Tonsillar swelling, Tonsillar exudate, Trismus, Muffled voice, Hoarse voice Neck: Positive: Supple, Tenderness @ - peritonsilar nodes, Enlarged Nodes @ - peritonsilar(slight) Respiratory: Positive: Lungs clear, Normal breath sounds Cardiovascular: Positive: RRR, No Murmur Abdomen Description: Positive: Nontender, No Organomegaly, Soft Bowel Sounds: Positive: Present Musculoskeletal: Positive: ROM Intact Neurological: Positive: Alert Psychological: Positive: Normal Response To Family, Age Appropriate Behavior Skin Exam: Normal, Other - Few red areas to either side of anterior neck that randal. not petechial and no blistering. <Cynthia Alvarez - Last Filed: 10/16/17 19:55> Vital Signs: Initial Vital Signs Temp 97.9 F 10/16/17 19:41 Pulse 88 10/16/17 19:41 Resp 18 10/16/17 19:41 BP 147/74 10/16/17 19:41 Pulse Ox 95 10/16/17 19:41 <Yvrose Echevarria - Last Filed: 10/17/17 09:06> Diagnostics - Laboratory Diagnostic Studies Completed/Ordered: RAPID STREP=+ <Cynthia Alvarez - Last Filed: 10/16/17 19:55> Course/Dx - Course Course Of Treatment: + RAPID STREP. WILL TX WITH ANTIBIOTIC. RASH IS NON SPECIFIC. NOT C/W SHINGLES AND UNLIKELY SCALET FEVER. PT WAS OBSERVED RUBBING THAT AREA WELL. NO SPECIFIC TX OF RASH, WILL OBSERVE. HX HTN, TX. - Differential Dx - Multi-Symptom Provider Diagnoses: Strep throat. rash anterior neck <Cynthia Alvarez - Last Filed: 10/16/17 19:55> Discharge - Sign-Out/Discharge Documenting (check all that apply): Discharge - Billing Disposition and Condition Condition: STABLE Disposition: HOME <Cynthia Alvarez - Last Filed: 10/16/17 19:55> - Billing Disposition and Condition Condition: STABLE Disposition: HOME <Yvrose Echevarria - Last Filed: 10/17/17 09:06> - Discharge Plan Condition: Stable Disposition: HOME Prescriptions: Amoxicillin PO (*) [Amoxicillin 500 MG CAP*] 500 mg PO Q12H 10 Days #20 cap Patient Education Materials: Strep Throat (DC), Acute Rash (ED) Referrals: Mayito Galarza DO [Primary Care Provider] - 7 Days Attestation Statement User Type: Provider - I was available for consult. This patient was seen by the [facility]. The patient was not presented to, seen by, or examined by me. -Ines <Yvrose Echevarria - Last Filed: 10/17/17 09:06>
[2017-10-16] MEDS ORDERED: Amoxicillin PO (*) 500 MG CAP PO ONE (20:27)
== END 2017-10-16 20:31 | disposition home or self-care (01) ==
LOC: UCCORT 19:16
DX: J02.0 Streptococcal pharyngitis (principal); Z88.8 Allergy status to other drugs, medicaments and biological substances; E78.5 Hyperlipidemia, unspecified; I10 Essential (primary) hypertension; R21 Rash and other nonspecific skin eruption
CPT/HCPCS: 87651; 99212; A9270-GY; G0463